=== PATIENT | male | born 1995 | race Caucasian/White ===

== ENCOUNTER 2024-03-05 13:41 | Emergency (ER) | payer OTHER ==
[2024-03-05 14:01] VITALS: RESP 18
[2024-03-05 14:29] LABS: Appearance,Urine Cloudy (Clear); Bacteria,Urine Rare /hpf; Bilirubin,Urine Negative (Negative); Blood,Urine Moderate (Negative); Color,Urine Yellow; Glucose,Urine (UA) Negative (Negative); Hyaline Casts,Urine 1 /lpf (0-2); Ketones,Urine Negative (Negative); Leukocyte Esterase,Urine Large (Negative); Mucus,Urine Rare /hpf; Nitrite,Urine Negative (Negative); PH, Urine 5.5 (5.0-8.0); Protein,Urine Trace (Negative); RBC,Urine 23 /hpf (0-5); Specific Gravity,Urine 1.028 (1.001-1.035); Urobilinogen,Urine <2.0 mg/dL (<2.0); WBC,Urine 179 /hpf (0-5)
--- NOTE | 2024-03-05 15:20 | US ---
EXAMINATION TYPE: US scrotum with doppler. Grayscale and color Doppler Duplex imaging performed of t jenifer scrotum. DATE OF EXAM: 03/05/2024 COMPARISON: NONE CLINICAL INDICATION: Male, 28 years old with history of right pain; Pt states right testicle pain, bl ood in semen EXAM MEASUREMENTS: TESTICLES: Right Testicle: 3.8 x 2.2 x 2.8 cm Left Testicle: 4.0 x 2.1 x 2.8 cm EPIDIDYMIS HEAD: Right Epididymis: 1.2 cm Left Epididymis: 1.3 cm Doppler performed to assess for testicular vascularity; good bilateral color flow and waveforms are s een. There is no evidence of testicular torsion. Presence of hydroceles: No Presence of varicoceles: No In area of pt's pain near right epi body and tail, the epididymis appears enlarged, heterogeneous, and hypervascular suggesting right epididymitis IMPRESSION: Correlate for right-sided epididymitis.
--- NOTE | 2024-03-05 15:43 | ED ---
Male Urogenital HPI - General Chief complaint: Urogenital Stated complaint: Back pain, pain when urinating Time Seen by Provider: 03/05/24 13:59 Source: patient, RN notes reviewed Mode of arrival: ambulatory Limitations: no limitations - History of Present Illness Initial comments: 28-year-old male presents emergency department complaining right-sided te sticular pain. Patient states he has had some burning sensation recently. Patient states he has no blood within his semen. Patient states he had no trauma states he denies any penile discharge denies any history of STDs other than herpes. Patient denies any rectal pain states that he does have some back pain. - Related Data Previous Rx's Medication Instructions Recorded Sulfamethox-Tmp 800-160Mg [Bactrim 1 each PO Q12HR #14 tab 03/05/24 Ds] Allergies Allergy/AdvReac Type Severity Reaction Status Date / Time No Known Allergies Allergy Verified 03/05/24 13:51 Review of Systems ROS Statement: Those systems with pertinent positive or pertinent negative responses have been documented in the HPI. ROS Other: All systems not noted in ROS Statement are negative. Past Medical History Past Medical History: No Reported History History of Any Multi-Drug Resistant Organisms: None Reported Past Surgical History: Appendectomy Past Psychological History: No Psychological Hx Reported Smoking Status: Current every day smoker Past Alcohol Use History: Occasional Past Drug Use History: None Reported General Exam Limitations: no limitations General appearance: alert, in no apparent distress Head exam: Present: atraumatic, normocephalic, normal inspection Respiratory exam: Present: normal lung sounds bilaterally. Absent: respiratory distress, wheezes, rales, rhonchi, stridor Cardiovascular Exam: Present: normal rhythm, tachycardia, normal heart sounds. Absent: systolic murmur, diastolic murmur, rubs, gallop, clicks GI/Abdominal exam: Present: soft, normal bowel sounds. Absent: distended, tenderness, guarding, rebound, rigid exam: Present: testicular tenderness, scrotal swelling Neurological exam: Present: alert Course Vital Signs 03/05/24 13:49 Temperature 97.8 F Pulse Rate 113 H Respiratory 18 Rate Blood Pressure 147/91 O2 Sat by Pulse 98 Oximetry Medical Decision Making - Medical Decision Making Was pt. sent in by a medical professional or institution (, PA, SUPERVISOR TR[employer] ACCOUNTS, urgent care, hospital, or snf...) When possible be specific @ -No Did you speak to anyone other than the patient for history (EMS, parent, family, police, friend...)? What history was obtained from this source @ -No Did you review nursing and triage notes (agree or disagree)? Why? @ -I reviewed and agree with nursing and triage notes Were old charts reviewed (outside hosp., previous admission, EMS record, old EKG, old radiological studies, urgent care reports/EKG's, snf records)? Report findings @ -No old charts were reviewed Differential Diagnosis (chest pain, altered mental status, abdominal pain women, abdominal pain men, vaginal bleeding, weakness, fever, dyspnea, syncope, headache, dizziness, GI bleed, back pain, seizure, CVA, palpatations, mental health, musculoskeletal)? @ -[Epididymitis, testicular torsion, testicular mass, UTI EKG interpreted by me (3pts min.). @ -None X-rays interpreted by me (1pt min.). @ -None done CT interpreted by me (1pt min.). @ -None done U/S interpreted by me (1pt. min.). @ -Ultrasound scrotum showing right-sided epididymitis normal flow What testing was considered but not performed or refused? (CT, X-rays, U/S, labs)? Why? @ -None What meds were considered but not given or refused? Why? @ -None Did you discuss the management of the patient with other professionals (professionals i.e. , PA, SUPER[employer], lab, RT, psych nurse, social and human services assistant, promotions team leader, teacher, worldwide chief creative officer, field nurse case manager)? Give summary @ -No Was smoking cessation discussed for >3mins.? @ -No Was critical care preformed (if so, how long)? @ -No Were there social determinants of health that impacted care today? How? (Homelessness, low income, unemployed, alcoholism, drug addiction, transp ortation, low edu. Level, literacy, decrease access to med. care, [facility], rehab)? @ -No Was there de-escalation of care discussed even if they declined (Discuss DNR or withdrawal of care, Hospice)? DNR status @ -No What co-morbidities impacted this encounter? (DM, HTN, Smoking, COPD, CAD, Cancer, CVA, ARF, Chemo, Hep., AIDS, mental health diagnosis, sleep apnea, morbid obesity)? @ -None Was patient admitted / discharged? Hospital course, mention meds given and route, prescriptions, significant lab abnormalities, going to OR and other pertinent info. @ -Discharge patient has evidence of epididymitis was treated with Rocephin, azithromycin and Bactrim. Patient will follow-up with PCP follow-up on cultures return pressure discussed. Undiagnosed new problem with uncertain prognosis? @ -No Drug Therapy requiring intensive monitoring for toxicity (Heparin, Nitro, Insulin, Cardizem)? @ -No Were any procedures done? @ -No Diagnosis/symptom? @ -UTI, epididymitis Acute, or Chronic, or Acute on Chronic? @ -Acute Uncomplicated (without systemic symptoms) or Complicated (systemic symptoms)? @ -Uncomplicated Side effects of treatment? @ -No Exacerbation, Progression, or Severe Exacerbation? @ -No Poses a threat to life or bodily function? How? (Chest pain, [place], [place], pneumonia, PE, COPD, DKA, ARF, appy, cholecystitis, CVA, Diverticulitis, Homicidal, Suicidal, threat to staff... and all critical care pts) @ -No - Lab Data Lab Results 03/05/24 Range/Units 13:56 Urine Color Yellow Urine Appearance Cloudy (Clear) Urine pH 5.5 (5.0-8.0) Ur Specific [place] 1.028 (1.001-1.035) Urine Protein Trace H (Negative) Urine Glucose (UA) Negative (Negative) Urine Ketones Negative (Negative) Urine Blood Moderate H (Negative) Urine Nitrite Negative (Negative) Urine Bilirubin Negative (Negative) Urine Urobilinogen <2.0 (<2.0) mg/dL Ur Leukocyte Esterase Large H (Negative) Urine RBC 23 H (0-5) /hpf Urine WBC 179 H (0-5) /hpf Urine Bacteria Rare H (None) /hpf Hyaline Casts 1 (0-2) /lpf Urine Mucus Rare H (None) /hpf Disposition Clinical Impression: Epididymitis, UTI (urinary tract infection) Disposition: HOME SELF-CARE Condition: Stable Instructions (If sedation given, give patient instructions): Epididymitis (ED), Urinary Tract Infection in Men (ED) Additional Instructions: Please return to the Emergency Department if symptoms worsen or any other concerns. Prescriptions: Sulfamethox-Tmp 800-160Mg [Bactrim Ds] 1 each PO Q12HR #14 tab Is patient prescribed a controlled substance at d/c from ED?: No Referrals: None,Stated [Primary Care Provider] - 1-2 days Time of Disposition: 15:43
[2024-03-05] MEDS: AZITHROMYCIN 250 MG TAB PO STA (16:16)
[2024-03-05] MEDS: cefTRIAXone 1,000 MG VIAL (IM USE) IM STA (16:18)
[2024-03-05 17:03] VITALS: BP 132/78; PULSE 100; TEMP 98
[2024-03-07 14:10] LABS: C. trachomatis,PCR Negative (Negative)
[2024-03-07 14:31] LABS: N. gonorrhoeae,PCR Negative (Negative)
== END 2024-03-05 16:20 | disposition home or self-care (01) ==
LOC: EC 13:41
DX: N45.1 Epididymitis (principal); N39.0 Urinary tract infection, site not specified; F17.200 Nicotine dependence, unspecified, uncomplicated
CPT/HCPCS: 81001; 87491; 87591; 87086; 93975; 76870; 99284; 96372; J0696

== ENCOUNTER 2024-03-07 10:49 | Emergency (ER) | payer OTHER ==
[2024-03-07 11:37] VITALS: RESP 18; TEMP 98
--- NOTE | 2024-03-07 11:48 | ED ---
Recheck HPI - General Source: patient, RN notes reviewed, old records reviewed Mode of arrival: ambulatory Limitations: no limitations - History of Present Illness MD Complaint: abnormal lab, medication refill request -: days(s) (3) Returns Today for: persistent/worsening pain related to initial visit Associated Symptoms: none <Chema Ferrell - Last Filed: 03/07/24 12:31> <Shlomo Tran - Last Filed: 03/07/24 13:35> - General Chief Complaint: Urogenital Stated Complaint: Pain in scrotum Time Seen by Provider: 03/07/24 11:23 - History of Present Illness Initial Comments: This is a 28-year-old male to the ER for evaluation today. [place] for evaluation regards to severe scrotal pain. Patient does have a girlfriend and 1 sexual partner. Patient was recently in the ER and diagnosed with epididymitis 2 days ago started on antibiotics and has worsening symptoms. Pain is more significant more severe with increasing swelling. No fevers (Chema Ferrell) - Related Data Previous Rx's Medication Instructions Recorded Sulfamethox-Tmp 800-160Mg [Bactrim 1 each PO Q12HR #14 tab 03/05/24 Ds] Allergies Allergy/AdvReac Type Severity Reaction Status Date / Time No Known Allergies Allergy Verified 03/07/24 11:14 Review of Systems ROS Other: All systems not noted in ROS Statement are negative. <Chema Ferrell - Last Filed: 03/07/24 12:31> ROS Other: All systems not noted in ROS Statement are negative. <Shlomo Tran - Last Filed: 03/07/24 13:35> ROS Statement: Those systems with pertinent positive or pertinent negative responses have been documented in the HPI. Past Medical History Past Medical History: No Reported History Additional Past Medical History / Comment(s): Menegitis History of Any Multi-Drug Resistant Organisms: None Reported Past Surgical History: Appendectomy Past Psychological History: No Psychological Hx Reported Smoking Status: Current every day smoker Past Alcohol Use History: Occasional Past Drug Use History: None Reported <Chema Ferrell - Last Filed: 03/07/24 12:31> General Exam Limitations: no limitations General appearance: alert, in no apparent distress Head exam: Present: atraumatic, normocephalic, normal inspection Eye exam: Present: normal appearance, PERRL, EOMI. Absent: scleral icterus, conjunctival injection, periorbital swelling ENT exam: Present: normal exam, mucous membranes moist Neck exam: Present: normal inspection. Absent: tenderness, meningismus, lymphadenopathy Respiratory exam: Present: normal lung sounds bilaterally. Absent: respiratory distress, wheezes, rales, rhonchi, stridor Cardiovascular Exam: Present: regular rate, normal rhythm, normal heart sounds. Absent: systolic murmur, diastolic murmur, rubs, gallop, clicks GI/Abdominal exam: Present: soft, normal bowel sounds. Absent: distended, tenderness, guarding, rebound, rigid Extremities exam: Present: normal inspection, full ROM, normal capillary refill. Absent: tenderness, pedal edema, joint swelling, calf tenderness Back exam: Present: normal inspection Neurological exam: Present: alert, oriented X3, CN II-XII intact Psychiatric exam: Present: normal affect, normal mood Skin exam: Present: warm, dry, intact, normal color. Absent: rash <Chema Ferrell - Last Filed: 03/07/24 12:31> Course <Chema Ferrell - Last Filed: 03/07/24 12:31> Vital Signs 03/07/24 11:08 Temperature 98.0 F Pulse Rate 100 Respiratory 18 Rate Blood Pressure 172/92 O2 Sat by Pulse 97 Oximetry - Reevaluation(s) Reevaluation #1: 03/07/24 12:32 Records reviewed (Chema Ferrell) Reevaluation #4: Was pt. sent in by a medical professional or institution (, PA, IT INFRASTRUCTURE MANAGER, urgent care, hospital, or shelter...) When possible be specific @ -no Did you speak to anyone other than the patient for history (EMS, parent, family, police, friend...)? What history was obtained from this source @ -no Did you review nursing and triage notes (agree or disagree)? Why? @ -agree Are old charts reviewed (outside hosp., previous admission, EMS record, old EKG, old radiological studies, urgent care reports/EKG's, shelter records)? Report findings @ -yes Differential Diagnosis (chest pain, altered mental status, abdominal pain women, abdominal pain men, vaginal bleeding, weakness, fever, dyspnea, syncope, headache, dizziness, GI bleed, back pain, seizure, CVA, palpatations, mental health, musculoskeletal)? @ -prior EKG interpreted by me (3pts min.). @ -yes X-rays interpreted by me (1pt min.). @ -yes negative for acute disease CT interpreted by me (1pt min.). @ -no U/S interpreted by me (1pt. min.). @ -no What testing was considered but not performed or refused? (CT, X-rays, U/S, labs)? Why? @ -none What meds were considered but not given or refused? Why? @ -none Did you discuss the management of the patient with other professionals (professionals i.e. , PA, IT INFRASTRUCTURE MANAGER, lab, RT, psych nurse, social service assistant, waistline joiner lockstitch, teacher, technology officer, corrections caseworker)? Give summary @ -no Was smoking cessation discussed for >3mins.? @ -no Was critical care preformed (if so, how long)? @ -no Were there social determinants of health that impacted care today? How? (Homelessness, low income, unemployed, alcoholism, drug addiction, transportation, low edu. Level, literacy, decrease access to med. care, [facility] [facility], rehab)? @ -none Was there de-escalation of care discussed even if they declined (Discuss DNR or withdrawal of care, Hospice)? DNR status @ -no What co-morbidities impacted this encounter? (DM, HTN, Smoking, COPD, CAD, Cancer, CVA, ARF, Chemo, Hep., AIDS, mental health diagnosis, sleep apnea, morbid obesity)? @ -none Was patient admitted / discharged? Hospital course, mention meds given and route, prescriptions, significant lab abnormalities, going to OR and other pertinent info. @ - Undiagnosed new problem with uncertain prognosis? @ -no Drug Therapy requiring intensive monitoring for toxicity (Heparin, Nitro, Insulin, Cardizem)? @ -no Were any procedures done? @ -no Diagnosis/symptom? @ - Acute, or Chronic, or Acute on Chronic? @ -Acute Uncomplicated (without systemic symptoms) or Complicated (systemic symptoms)? @ -Complicated Side effects of treatment? @ -no Exacerbation, Progression, or Severe Exacerbation? @ -exacerbation Poses a threat to life or bodily function? How? (Chest pain, [place], [place], pneumonia, PE, COPD, DKA, ARF, appy, cholecystitis, CVA, Diverticulitis, Homicidal, Suicidal, threat to staff... and all critical care pts) @ -yes (Chema Ferrell) Medical Decision Making <Shlomo Tran - Last Filed: 03/07/24 13:35> - Medical Decision Making See above Ultrasound of the scrotum interpreted by myself shows evidence of epididymitis. Patient reevaluated and updated. Patient resting comfortably in bed. Patient has received Rocephin and azithromycin twice as well as oral Bactrim. Patient will be discharged for follow-up. Diagnosis: Epididymitis, acute (Shlomo Tran) - Lab Data Lab Results 03/07/24 Range/Units 12:56 Urine Color Yellow Urine Appearance Clear (Clear) Urine pH 6.0 (5.0-8.0) Ur Specific [place] 1.030 (1.001-1.035) Urine Protein Trace H (Negative) Urine Glucose (UA) Negative (Negative) Urine Ketones Negative (Negative) Urine Blood Negative (Negative) Urine Nitrite Negative (Negative) Urine Bilirubin Negative (Negative) Urine Urobilinogen <2.0 (<2.0) mg/dL Ur Leukocyte Esterase Small H (Negative) Urine RBC 2 (0-5) /hpf Urine WBC 8 H (0-5) /hpf Urine Mucus Rare H (None) /hpf Disposition <Chema Ferrell - Last Filed: 03/07/24 12:31> Is patient prescribed a controlled substance at d/c from ED?: No Time of Disposition: 13:35 <Shlomo Tran - Last Filed: 03/07/24 13:35> Clinical Impression: Epididymitis Disposition: HOME SELF-CARE Condition: Stable Instructions (If sedation given, give patient instructions): Epididymitis (ED) Additional Instructions: Continue antibiotics. Please do follow-up with primary care physician in the next couple of days for recheck. Return for increased pain or swelling, fevers, worsening or changing symptoms or other concerns. Referrals: Javier Stein MD [STAFF PHYSICIAN] - 1-2 days
--- NOTE | 2024-03-07 13:05 | US ---
EXAMINATION TYPE: US scrotum with doppler. Grayscale and color Doppler Duplex imaging performed of nidia burgess scrotum. DATE OF EXAM: 03/07/2024 COMPARISON: 03/05/2024 CLINICAL INDICATION: Male, 28 years old with history of pain; Pain and swelling worse from 03/05/2024 , testicles now purple EXAM MEASUREMENTS: TESTICLES: Right Testicle: 4.3 x 2.5 x 2.7 cm Left Testicle: 4.3 x 2.2 x 2.7 cm EPIDIDYMIS HEAD: Right Epididymis: 1.2 x 1.5 x 1.3 cm Left Epididymis: 1.5 x 1.6 x 1.8 cm Doppler performed to assess for testicular vascularity; good bilateral color flow and waveforms are s een. There is no evidence of testicular torsion. Presence of hydroceles: Small right hydrocele Presence of varicoceles: Bilateral Thickened epididymus head, body, and tail bilaterally IMPRESSION: 1. Thickened appearance of the epididymis bilaterally correlate for epididymitis. 2. Bilateral small varicoceles. 3. Small).
[2024-03-07 13:26] LABS: Appearance,Urine Clear (Clear); Bilirubin,Urine Negative (Negative); Blood,Urine Negative (Negative); Color,Urine Yellow; Glucose,Urine (UA) Negative (Negative); Ketones,Urine Negative (Negative); Leukocyte Esterase,Urine Small (Negative); Mucus,Urine Rare /hpf; Nitrite,Urine Negative (Negative); Protein,Urine Trace (Negative); RBC,Urine 2 /hpf (0-5); Urobilinogen,Urine <2.0 mg/dL (<2.0); WBC,Urine 8 /hpf (0-5)
[2024-03-07] MEDS: AZITHROMYCIN 500 MG TAB PO STA (13:50)
[2024-03-07 14:26] VITALS: BP 148/94; PULSE 96
== END 2024-03-07 13:55 | disposition home or self-care (01) ==
LOC: EC 10:49
DX: N45.1 Epididymitis (principal); F17.200 Nicotine dependence, unspecified, uncomplicated
CPT/HCPCS: 76870; 81001; 93975; 99284